=== PATIENT | female | born 1940 | race Asian ===

== ENCOUNTER → 2019-11-30 | Outpatient (CLI) | payer MEDICARE, OTHER ==
--- NOTE | 2019-11-30 17:42 | RAD ---
INDICATION: Reason: WHEEZING / Spl. Instructions: / History: COMPARISON: None. FINDINGS: 2 view of chest obtained. Surgical clips in the right upper quadrant of the abdomen. Degenerative changes of the spine. Disorganized pulmonary markings bilaterally with some more focal patchy nodular opacities including at the left lung base as well as right mid-upper lung. Degenerative changes of the spine. IMPRESSION: * Patchy nodular opacities bilaterally. Could be infectious or inflammatory in nature but would obtain a follow-up to ensure that none of this increases to exclude lung nodules. * Disorganized pulmonary markings bilaterally. Would correlate for possible causes such as chronic lung disease. Electronically signed by: Jose Gill MD (11/30/2019 5:38 PM) [id number]
== END | disposition home or self-care (01) ==
LOC: RAD 15:34
PROVIDERS: ATTEND Family Medicine
DX: R91.8 Other nonspecific abnormal finding of lung field (principal); R06.2 Wheezing; M47.814 Spondylosis without myelopathy or radiculopathy, thoracic region
CPT/HCPCS: 71046

== ENCOUNTER → 2019-12-05 | Outpatient (CLI) | payer MEDICARE, OTHER ==
--- NOTE | 2019-12-05 16:02 | RAD ---
EXAM: BILATERAL DIGITAL 3D SCREENING MAMMOGRAPHY. HISTORY: Routine mammographic screening. TECHNIQUE: Bilateral digital 3D and tomographic images were obtained in CC and MLO projections. Computer-aided detection was applied. COMPARISON: None available. This is interpreted as a baseline study. COMPOSITION: C. The breasts are heterogeneously dense, which may obscure small masses. FINDINGS: There are no suspicious masses, microcalcifications or architectural distortion. The parenchymal pattern is stable. Vascular calcifications are benign. BI-RADS CATEGORY 2: Benign. RECOMMENDATION: 1. Routine screening mammography in one year. If mammography demonstrates dense breast tissue (heterogenously dense or extremely dense, category C or D), which could hide abnormalities, and if other risk factors for breast cancer have been identified, supplemental screening tests that may be suggested by the ordering physician may be of benefit. Dense breast tissue, in and of itself, is a relatively common condition. Therefore, this information is not provided to cause undue concern, but rather to raise awareness and to promote discussion with the referring physician regarding the presence of other risk factors, in addition to dense breast tissue. The results of this mammography examination is provided to the patient and referring physician. The patient should contact their referring physician if any questions or concerns exist regarding this report. PQRS compliance statement - Patient information was entered into a reminder system with a target due date for the next mammogram. "Our facility is accredited by the [employer] Mammography Program." Electronically signed by: Ken Sanchez MD (12/05/2019 3:58 PM) [id number]
== END | disposition home or self-care (01) ==
LOC: MAMMO 12:30
PROVIDERS: ATTEND Family Medicine
DX: Z12.31 Encounter for screening mammogram for malignant neoplasm of breast (principal); N64.89 Other specified disorders of breast; R06.2 Wheezing
CPT/HCPCS: 77063; 77067

== ENCOUNTER → 2020-01-09 | Outpatient (CLI) | payer MEDICARE, OTHER ==
--- NOTE | 2020-01-09 14:12 | RAD ---
CT chest without contrast HISTORY: Lung infiltrates Computed tomographic imaging of the chest was performed without IV contrast COMPARISON: None PQRS Compliance Statement: One or more of the following individualized dose reduction techniques were utilized for this examination: 1. Automated exposure control 2. Adjustment of the mA and/or kV according to patient size 3. Use of iterative reconstruction technique FINDINGS: There is extensive upper and lower subpleural interstitial and alveolar changes without particular nodular components present. There is a more dense aspect seen on image #24 in the right upper lobe. No pleural effusions. There is a small pericardial effusion. Visualized renal calcifications are likely vascular. Postoperative changes of cholecystectomy. Visualized thyroid gland unremarkable Mild mediastinal lymphadenopathy. IMPRESSION: Diffuse bilateral interstitial and associated alveolar opacifications which could reflect a nonspecific pneumonitis. Interstitial lung disease certainly a consideration. There is a nodular component seen on image #24 the right upper lobe and follow-up in 3 months time to document stability is recommended. Electronically signed by: Christopher Scanlon MD (01/09/2020 2:09 PM) [id number]
== END ==
LOC: CT 11:58
PROVIDERS: ATTEND Internal Medicine Pulmonary Disease
DX: J84.9 Interstitial pulmonary disease, unspecified (principal); I31.3 Pericardial effusion (noninflammatory); R59.0 Localized enlarged lymph nodes
CPT/HCPCS: 71250